=== PATIENT | female | born 1990 | race Caucasian/White ===

== ENCOUNTER 2022-01-29 09:43 | Outpatient (CLI) | payer BC, SELFPAY ==
--- NOTE | 2022-01-29 09:45 | CRLHL7_ITS ---
For Patients: As a result of the Cures Act, medical imaging exams and procedure reports are released immediately into your electronic medical record. You may view this report before your referring provider. If you have questions, please contact your health care provider. INDICATION: First trimester scan, establish dates. COMPARISON: None. TECHNIQUE: Real-time gonzalez-scale imaging of the pelvis was performed. FINDINGS: Sonographic imaging demonstrates a single living intrauterine gestation. The embryo demonstrates a regular cardiac rate measuring 178 beats per minute. The embryo`s crown-rump length measurement of 2.3 cm corresponds to a gestational age of 9 weeks 0 days with a sonographic due date of September 03, 2022. There is a normal-appearing yolk sac measuring 3.2 mm. There are no gross abnormalities noted within the embryo at this early state of development. The placenta has not yet developed. The gestational sac has a normal appearance and there is no evidence of a perigestational hemorrhage. The amount of fluid within the sac appears appropriate for gestational age. The cervix is closed. The myometrium appears normal. The ovaries are of normal size. The right ovary measures 3.7 x 2.4 x 2.1 cm and appears to contain a small corpus luteum cyst of . The left ovary measures 3.1 x 2.4 x 1.9 cm. There are no suspicious fluid collections noted in the cul-de-sac. IMPRESSION: Normal first trimester OB ultrasound exam. Gestational age calculated at 9 weeks 0 days with a sonographic due date of September 03, 2022. Dictated by Bertrand Bell MD @ 01/29/2022 11:38:16 AM (Electronically Signed)
[2022-01-29 14:04] LABS: Hepatitis B Surface Antigen* Negative (Negative)
[2022-01-29 14:12] LABS: HIV 1/2/P24 Combo Screen* Negative (Negative)
[2022-01-29 14:21] LABS: Hepatitis C Virus Antibody* Negative (Negative)
[2022-01-30 17:16] LABS: Rapid Plasma Reagin (RPR) Non Reactive (Non Reactive)
[2022-01-30 20:41] LABS: Rubella Antibody IgG 34.2 IU/mL
== END 2022-01-29 09:44 | disposition home or self-care (01) ==
LOC: US 09:44
PROVIDERS: Visit Provider Advanced Practice Midwife
DX: Z34.81 Encounter for supervision of other normal pregnancy, first trimester (principal); Z3A.09 9 weeks gestation of pregnancy
CPT/HCPCS: 36415; 76817; 86592; 86703; 86762; 86787; 86803; 86850; 86900; 86901; 87086; 87340

== ENCOUNTER 2022-04-13 09:09 | Outpatient (CLI) | payer BC, SELFPAY ==
--- NOTE | 2022-04-13 09:15 | CRLHL7_ITS ---
For Patients: As a result of the Century Cures Act, medical imaging exams and procedure reports are released immediately into your electronic medical record. You may view this report before your referring provider. If you have questions, please contact your health care provider. INDICATION: Evaluate anatomy. COMPARISON: 01/29/2022 TECHNIQUE: Real time gonzalez scale imaging of the fetus was performed as well as color Doppler analysis of the umbilical vessels. FINDINGS: Sonographic imaging demonstrates a single living intrauterine gestation. Fetus demonstrates a regular cardiac rate of 161 beats per minute. Fetus has a variable position. The placenta lies posteriorly without evidence of placenta previa. The edge of the placenta is located 5.1 cm from the internal cervical os. Amniotic fluid volume appears normal. Single deepest vertical pocket: 4.9 cm. The cervix is closed and measures 3.7 cm in length. The composite ultrasound gestational age is calculated at 19 weeks 4 days with an estimated sonographic due date of 09/03/2022. The estimated weight is 313 grams which lies at the 34th %. The following biometric measurements were obtained: Biparietal diameter: 4.5 cm/19 weeks 3 days 28th% Head circumference: 17.2 cm/19 weeks 5 days 30th% Abdominal circumference: 15.3 cm/20 weeks 3 days 61st% Femur length: 2.9 cm/19 weeks 0 days 13th% The HC/AC ratio measures: 1.12 range (1.08-1.26) On anatomic survey, there is a normal appearance of the cerebral ventricles, cavum septi pellucidi, cisterna magna and cerebellum. The nose, lips, and facial profile appear normal. The cervical, thoracic and lumbar spine are well visualized and appear normal. There is a normal four-chamber heart view and the left and right ventricular outflow tracts appear normal. The diaphragm and stomach appear normal. The kidneys and bladder also appear normal. There is a normal three-vessel cord and there is an eccentric cord insertion site. The four extremities appear normal. IMPRESSION: Concordance of clinical and sonographic dating. No intrinsic abnormalities on anatomic survey. Appearance of circumvallate placenta noted. No previa. Dictated by Qasim Chandra MD @ 04/13/2022 11:14:18 AM (Electronically Signed)
== END 2022-04-13 09:10 | disposition home or self-care (01) ==
PROVIDERS: Visit Provider Obstetrics & Gynecology
DX: Z34.92 Encounter for supervision of normal pregnancy, unspecified, second trimester (principal); Z3A.20 20 weeks gestation of pregnancy
CPT/HCPCS: 76805

== ENCOUNTER 2022-06-08 10:57 | Outpatient (CLI) | payer BC, SELFPAY | END 2022-06-08 10:58 | disposition home or self-care (01) | LOC: NFLDREF 06-09 02:57 | PROVIDERS: Visit Provider Obstetrics & Gynecology | DX: Z3A.28 28 weeks gestation of pregnancy (principal); O43.113 Circumvallate placenta, third trimester | CPT/HCPCS: 86592; 86850 ==

== ENCOUNTER 2022-07-09 09:34 | Outpatient (CLI) | payer BC, SELFPAY ==
--- NOTE | 2022-07-09 09:45 | CRLHL7_ITS ---
For Patients: As a result of the Century Cures Act, medical imaging exams and procedure reports are released immediately into your electronic medical record. You may view this report before your referring provider. If you have questions, please contact your health care provider. INDICATION: female. Assess interval growth. Circumvallate placenta. TECHNIQUE: Transabdominal obstetrical ultrasound. COMPARISON: April 13, 2022. FINDINGS: Single living intrauterine in breech presentation. Posterior placenta. heart rate 142 beats per minute. Normal amniotic fluid. Single deepest pocket measurement 4.3 cm. Biparietal diameter 7.9 cm, 31 weeks 5 days, 23rd percentile. Head circumference 29.8 cm, 33 weeks 0 days, 27th percentile. Abdominal circumference 27.2 cm, 31 weeks 2 days, 18th percentile. Femur length 6 cm, 31 weeks 1 day, 11th percentile. Composite calculated ultrasound age 31 weeks 6 days with a sonographic due date of September 04, 2022. Estimated weight 1770 g which lies at the 15th percentile. The head to abdominal circumference ratio is normal at 1.1 (0.96-1.14). IMPRESSION: 1. Single living intrauterine in laura breech presentation. 2. Composite calculated ultrasound age 39 weeks 6 days with a sonographic due date of September 04, 2022. Appropriate growth and maturation in the interval. Dictated by Bertrand Bell MD @ 07/09/2022 11:12:58 AM (Electronically Signed)
== END 2022-07-09 09:35 | disposition home or self-care (01) ==
LOC: US 09:34
PROVIDERS: PCP Obstetrics & Gynecology; Visit Provider Obstetrics & Gynecology
DX: O43.113 Circumvallate placenta, third trimester (principal); Z3A.31 31 weeks gestation of pregnancy
CPT/HCPCS: 76816

== ENCOUNTER 2022-08-23 01:23 | Inpatient (IN) | payer BC, SELFPAY ==
[2022-08-23] VITALS (40 sets, daily range): BP systolic 95–130; BP diastolic 51–74; PULSE 53–155; RESP 16–18; TEMP 36.6–36.8; O2SAT 96–100; BMI 21.5
[2022-08-23] MEDS: LACTATED RINGERS 1000 ML 1,000 ML 999 ML IV ×2 (02:12→04:02)
[2022-08-23] MEDS: LIDOCAINE 2% (PF) 5 ML VIAL EPIDURAL ×2 (02:57→03:31)
[2022-08-23] MEDS: ROPIVACAINE 0.2% 100 ml 100 ML 12 MG EPIDURAL (03:00)
[2022-08-23] MEDS: fentaNYL 100 MCG/2 ML inj EPIDURAL (03:00)
--- NOTE | 2022-08-23 03:44 | W.PM.LDBA ---
Subjective History of Present Illness Date Seen: 08/23/22 Narrative: Patient is being admitted to Labor and Delivery for delivery after SROM. She is a 32 year old at 38 6/7 weeks gestation. Her full history and physical was dictated by Dr. VELAZCO on 08/12/22. Please see this for details. OB Problem List: . KIRILL 08/31/21 : Armen Barone. Boy at home: Tato. Baby: Girl! 1. Penicillin allergy (rash as a child - has not had penicillin since) 2. Low BMI (17) 3. Blood type B (-). Rhogam 06/08/2022 4. Circumvallate placenta: EFW at 20wks = 34% USN for EFW @ 32wks 07/09/22: BR. SDP: 4.3cm.? EFW:? 1770 g, 3 lb 14 oz, 15%.? BPD 23%, HC 27%, AC 18% FL 11% EFW 36 wks 08/03/2022: EFW of 2457 g, 5 lb 7 oz, 16%.? BPD 30%, HC 28%, AC 14%, FL 10%.? Vertex.? SDP 5.0 cm5. Last Pap smear in 2019: Normal.? Due for a Pap at her 6 week visit.? COVID: vaccinated, boosted x1 Flu: interested TDAP: 06/26/22 OB - Problem Based A/P Additional Plan (1) Circumvallate placenta: Status: Acute Plan 1. Expectant management of labor, if it stalls will recommend to start oxytocin. 2. GBS negative no need for antibiotic prophylaxis. 3. Epidural in place. 4. Continuous monitoring due to circumvallate placenta. OB Exam Physical Exam Vital signs: Pulse BP Pulse Ox 58 L 106/54 L 97 08/23/22 03:39 08/23/22 03:39 08/23/22 03:02 Detailed Labor and Delivery Exam Patient Gravid: Yes Dilation (cm): 4 Effacement (%): 90 Cervix position: mid Consistency: soft Contraction Frequency: Regular Tachysystole: No Contraction intensity: Moderate Fetus (Single) Station: 0 Amniotic Membrane Status: SROM Amniotic Membrane Fluid Description: Clear Heart Rate Baseline: 130 Monitor Accelerations: Present Monitor Decelerations: None Novelty Candy Maker Variability: Moderate (6-25)
[2022-08-23] MEDS: PHENYLEPHRINE 100 MCG/ML SYRINGE IVP (04:14)
--- NOTE | 2022-08-23 06:16 | W.PM.OBVAGDE ---
OB Procedure Vag Delivery Mother Details Mother Details: The patient is a 32 year-old, 2, Para 1, admitted on 08/23/22 at Days gestation. : 2 Para: 1 Weeks Gestation: 38.6 Admission Date: 08/23/22 Additional Details Amniotic Membrane Status: SROM Amniotic Membrane Rupture Date: 08/22/22 Amniotic Membrane Rupture Time: 23:45 Amniotic Membrane Fluid Description: Clear Analgesia/Anesthesia Type: Epidural Waterbirth: No Pitcoin: No Intrapartal Events: None Labor Onset: 03:00 Complete: 05:50 Pushin:52 Heart: heart tones during second stage were category 1. Delivery Details Delivery Date: 08/23/22 Delivery Time: 06:01 Route of delivery: Gender: Female Infant Viability: Alive; Heart Rate Present Position at Delivery: OA Delivery Details: Delivered over intact perineum via spontaneous vaginal delivery. was placed on maternal abdomen.? Cord was clamped and cut after a 30-60 second delay. Nose and mouth were bulb suctioned.? Infant weight pending. 1 Minute Interval Total Score: 8 5 Minute Interval Total Score: 9 Additional Details Shoulder Dystocia: No Placenta Delivery Time: 06:11 Placental Delivery Description: Spontaneous Procedure Done: Global Blood Loss: 50 Laceration: None Blood Loss Measurement Type: QBL Bakri Used: No Sponge/Need Count Correct: Yes Cord Vessel Description: 3 Vessels and Nuchal Cord Event Summary Status: Mother and were stable after delivery. Disposition: floor
[2022-08-23] MEDS: OXYTOCIN 30 unit/500 ML in NS 30 UNIT/500 ML BAG 300 UNIT IVPB (06:28)
--- NOTE | 2022-08-23 07:14 | PM.ANBPRC ---
[facility] Medical History (Updated 06/08/22 @ 11:16 by Marzena Hernandez MD) Circumvallate placenta ?O43.119 - Circumvallate placenta, unspecified trimester (ICD-10) care ?Z34.90 - Encounter for supervision of normal , unspecified, unspecified trimester (ICD-10) Preg complication NEC-del w/ complication ?O26.899 - Other specified related conditions, unspecified trimester (ICD-10) Low BMI Surgical History (Updated 05/26/22 @ 12:08 by Agnieszka Cornelius) History of hand surgery (03/22/09) ?Z98.890 - Other specified postprocedural states (ICD-10) H/O adenoidectomy ?Z90.89 - Acquired absence of other organs (ICD-10) Hx of tonsillectomy ?Z90.89 - Acquired absence of other organs (ICD-10) [place] teeth extracted ?K08.409 - Partial loss of teeth, unspecified cause, unspecified class (ICD-10) Family History (Updated 01/29/22 @ 11:21 by Flavia Hadley CNM) Father Prostate cancer Scleroderma Social History What is your current living situation: I presently have a place to live Problems where you live: no known problems In the past 12 months, utilities in danger of being shut off: no In the past 12 mos, have been you worried that your food would run out before you had money to buy more?: never true In the past 12 mos, the food you bought just didn't last and you didn't have money to buy more?: never true Smoking Status: Never smoker How often does anyone, including family, friends and others, physically hurt you: How often does anyone, including family, friends and others, insult or talk down to you: How often does anyone, including family, friends and others, threaten you with harm: How often does anyone, including family, friends and others, scream or curse at you: Little interest or pleasure in doing things: not at all Feeling down, depressed, or hopeless: not at all Meds Home Medications and Allergies Home Medications Medication Instructions Recorded Confirmed Type prenat.fabiáns,adrian,ysj-txeu-bcbgl 1 tab PO QDAY 01/29/22 08/23/22 History Allergies Allergy/AdvReac Type Severity Reaction Status Date / Time Penicillins Allergy Mild Unknown Verified 08/19/22 10:16 Results Vital Signs Vital Signs: Last Vital Signs Temp 97.9 F 08/23/22 06:15 Pulse 64 08/23/22 07:04 Resp 18 08/23/22 02:00 BP 121/56 L 08/23/22 07:04 Pulse Ox 97 08/23/22 03:02 Weight: 70.125 kg Height: 180.34 cm Anesthesia Procedures Epidural Insertion Patient Location: OB Start Time: 02:30 Stop Time: 03:30 Start Date: 08/23/22 Stop Date: 08/23/22 Reason for Block: primary anesthetic Patient Position: sitting Performed By: Alhaji Collins Preanesthetic Checklist: IV checked, risks and benefits discussed, surgical consent, monitors and equipment checked, pre-op evaluation, timeout performed and anesthesia consent Prep: chlorhexidine gluconate Monitoring: blood pressure monitoring, computational physicist, continuous pulse oximetry and heart rate Approach: midline Vertebral Space: lumbar (1-5) Needle Type: Tuohy needle Injection Technique: continuous catheter Needle gauge: 17 Needle Length (cm): 10 cm Needle Insertion Depth (cm): 6 Catheter Gauge: 19 Catheter Type: multi-orifice Catheter at skin depth (cm): 12 Test Dose Result: negative and lidocaine 1.5% with epinephrine 1 to 200,000 Events: other
[2022-08-23] MEDS: SODIUM CHLORIDE 0.9 % (FLUSH) 10 ML SYRINGE IVF (07:43)
[2022-08-23] MEDS: IBUPROFEN 600 MG TABLET PO ×2 (09:09→18:09)
[2022-08-23] MEDS: DOCUSATE SODIUM 100 MG CAPSULE PO (09:09)
[2022-08-23] MEDS: SIMETHICONE 80 MG TAB.CHEW PO (18:19)
[2022-08-24 00:51] VITALS: BP 114/69; PULSE 55; RESP 16; TEMP 36.6; O2SAT 96
[2022-08-24 05:55] VITALS: BP 109/64; PULSE 76; RESP 16; TEMP 36.4; O2SAT 97
[2022-08-24 06:42] LABS: Hemoglobin* 11.7 gm/dL (12.0-16.0)
--- NOTE | 2022-08-24 08:05 | PM.OBPNVD1 ---
OB - PN:Subj Subjective Date Seen: 08/24/22 Interval history: Nanda is a 32 y.o. at 38 6/7 who was admitted to L & D for spontaneous onset of labor. ?She had an uncomplicated NVD.? Narrative: Nanda is a 32 y.o. who was admitted to L & D for spontaneous onset of labor. ?She had an uncomplicated NVD.?The patient feels well. ?The pain is well controlled with current medications. ?She has no new complaints. ?She is breast feeding and reports things are going well but baby is very spitty.? the patient has done well.? Vitals have been stable.? She has remained afebrile.? Has a good appetite, is tolerating a general diet. ?She is voiding without difficulty.? She is passing gas and has had a small bowel movement.? She is ambulating and denies any dizziness.? Has Small amount of rubra lochia. OB - PN: Obj Exam Physical Exam: Vital signs: Temp Pulse Resp BP Pulse Ox O2 Del Method 97.6 F 76 16 109/64 97 Room Air 08/24/22 05:55 08/24/22 05:55 08/24/22 05:55 08/24/22 05:55 08/24/22 05:55 08/24/22 05:55 Narrative: GENERAL APPEARANCE:? normal affect, alert, no distress MOOD:? appropriate CHEST:? clear to auscultation HEART:? regular rate and rhythm ABDOMEN:? soft, non-tender the uterine fundus is 1 below Umbilicus, Midline and is appropriate for the stage of recovery. PERINEUM:? mild edema of the perineum. EXTREMITIES:? normal and no edema OB - PN: Obj Data Labs Labs: Laboratory Results - last 24 hr 08/24/22 06:18 Hgb 11.7 L OB - PN: A/P Vaginal Delivery Assessment and Plan (1) care and examination immediately after delivery: Status: Acute (2) Lactating mother: Status: Acute Plan day: 1 Plan: routine care Comments: Routine care Lactating mother. May see if desired. Anticipate discharge tomorrow 08/25.
[2022-08-24 14:45] VITALS: BP 96/55; PULSE 65; RESP 16; TEMP 36.7; O2SAT 97
[2022-08-24] MEDS: DOCUSATE SODIUM 100 MG CAPSULE PO (14:47)
[2022-08-24] MEDS: IBUPROFEN 600 MG TABLET PO (19:32)
[2022-08-25 02:05] VITALS: BP 124/93; PULSE 71; RESP 16; TEMP 36.6; O2SAT 98
[2022-08-25 07:25] VITALS: BP 110/60; PULSE 65; RESP 16; TEMP 36.8; O2SAT 98
[2022-08-25] MEDS: DOCUSATE SODIUM 100 MG CAPSULE PO ×2 (07:56→07:59)
--- NOTE | 2022-08-25 08:10 | PM.OBDSVD1 ---
DS: Providers Provider Time Seen by Provider: 08:11 Date Seen: 08/25/22 Date of admission: 08/23/22 01:23 Primary care physician: Marzena Hernandez MD Admitting Clinician: Gita Reardon MD Attending Physician on discharge: Gita Reardon MD Date of Discharge: 08/25/22 DS: Diagnosis Discharge Diagnosis (1) Normal vaginal delivery: Status: Acute (2) Lactating mother: Status: Acute (3) care and examination immediately after delivery: Status: Acute Exam Narrative: Exam Narrative: VSS, afebrile GENERAL APPEARANCE: ?normal affect, alert, no distress MOOD: ?appropriate HEENT: normocephalic, neck supple, full ROM CHEST: ?Symmetrical chest wall movement. ?Normal respiratory effort. ?Clear to auscultation HEART: ?regular rate and rhythm ABDOMEN: ?soft, non-tender. Uterine fundus is firm, 3 below Umbilicus, Midline and is appropriate for the stage of recovery. ?Bowel sounds present. PERINEUM: ?mild edema of the perineum, there is a no laceration. EXTREMITIES: ?normal and no edema Const: Vital Signs, click to edit/add: Vital Signs - 24 hr 08/24/22 14:45 08/25/22 02:05 08/25/22 07:25 Temperature 98.1 F 97.9 F 98.3 F Pulse Rate [Pulse Oximeter] 65 71 65 Respiratory Rate 16 16 16 Blood Pressure [Le ft Arm] 96/55 L 124/93 H 110/60 Pulse Oximetry 97 98 98 Oxygen Delivery Me thod Room Air Room Air Room Air Documenting provider has reviewed patient's vital signs: yes OB - DS: Summary Hospital Course Hospital Course: Nanda is a 32 y.o. G 2 P 2 who was admitted to L & D for labor. ?She had an uncomplicated NVD The patient feels well. ?The pain is well controlled with current medications. ?She has no new complaints. ?She is breast feeding and reports things are going well.? Baby has just been spitting up a lot. the patient has done well.? Vitals have been stable.? She has remained afebrile.? Has a good appetite, is tolerating a general diet. ?She is voiding without difficulty.? She is passing gas and has not had a bowel movement.? She is ambulating and denies any dizziness.? Has Small amount of rubra lochia. She is planning partnery vasectomy for prevention. Problems: none plan: Discharge home with baby. Follow up in 2 weeks and 6 weeks. , may follow up with if needed Peripartum Data delivery method: Vaginal Laceration description: None [place] Infant Gender: Female Status at Discharge Functional status at discharge: independent ambulation Overall status at discharge: patient is progressing back to baseline Time Spent with Patient Time attestation: Total time spent providing and/or coordinating discharge services: Time spent: Less than 30 minutes Discharge Plan Discharge Disposition: Home, Self-Care Date of Admission: 08/23/22 01:23 Attending Provider on Discharge: Juana Peoples Primary Care Provider: Marzena Hernandez Condition: Stable Anticipated Discharge Date/Time: 08/25/22 13:00 Discharge Medications: New docusate sodium 100 mg Capsule 100 mg PO BID PRNQty: 100 0RF Rx Instructions: Take 1 cap 1-2 times a day as needed for constipation ibuprofen 600 mg Tablet 600 mg PO Q6H PRNQty: 60 0RF Continued prenat.vits,adrian,sqg-yaat-miwcl Tablet 1 tab PO QDAY Discharge Orders: Discharge Order (Routine); Ordered 08/25/22 Ordered By: Juana Peoples Patient Education: OB Over the Counter Medication Information, OB Vaginal/Breast Feeding Additional Instructions: Follow up in 2 weeks and 6 weeks Activity Level: Activity as Tolerated Discharge Diet: Regular Follow Up Appointments: Marzena Hernandez MD [Primary Care Provider] - Forms: [facility] Info Instructions
== END 2022-08-25 15:10 | disposition home or self-care (01) | DRG 560 ==
LOC: OB OUT 08-24 10:30
PROVIDERS: Admitting Provider Obstetrics & Gynecology; PCP Obstetrics & Gynecology; Visit Provider Obstetrics & Gynecology
DX: O43.113 Circumvallate placenta, third trimester (principal); Z3A.38 38 weeks gestation of pregnancy; Z37.0 Single live birth
CPT/HCPCS: 01967; 36415; 85018; 85461; 88307; 88341; 88342; 99213; A9270; J2370; J2791; J2795; J3010; J7120

== ENCOUNTER 2022-08-30 19:54 | Emergency (ER) | payer BC, SELFPAY ==
[2022-08-30 20:08] VITALS: BP 121/83; PULSE 77; RESP 14; TEMP 36.7; O2SAT 98
[2022-08-30 20:33] LABS: Appearance Urine Clear (Clear); Bilirubin Urine Negative (Negative); Blood Urine 2+ (Negative); Color Urine Yellow (Yellow); Glucose Urine Negative (Negative); Ketones Urine Negative (Negative); Leukocyte Esterase Urine Negative (Negative); Nitrite Urine Negative (Negative); Protein Urine Negative (Negative); Specific Gravity Urine >= 1.030 (1.000-1.030); Urobilinogen Urine 0.2 (0.2-1.0)
--- NOTE | 2022-08-30 20:45 | ED.GENADULT ---
HPI - General Adult General Time Seen by Provider: 20:45 Date Seen: 08/30/22 Chief complaint: Abdominal Pain Stated complaint: 1week post , stomach pain Time Seen by Provider: 08/30/22 20:45 Source: patient, RN notes reviewed and old records reviewed Mode of arrival: ambulatory Limitations: no limitations History of Present Illness HPI narrative: Iraida is a very pleasant who is 1 week from a normal vaginal delivery who comes to the emergency room with abdominal pain. She describes lower abdominal pain starting yesterday morning. It has continued is worsening and is associated with discomfort with urinating. She notes no nausea vomiting or fever. She has had loose stools but had been on stool softeners. She has not noticed any blood in her stool. She notes continued vaginal drainage that has slowed down. When she initially went home on WednesdayAugust 25 she did have a golf ball size clot but no clots since that time. Her water broke prior to delivery knots what brought her to the hospital. She did not require any antibiotics during her labor. She did have a straight cath during her labor. She did have an epidural. Related Data Home Medications Medication Instructions Recorded Confirmed prenat.vits,adrian,[id number] 1 tab PO QDAY 01/29/22 08/30/22 Previous Rx's Medication Instructions Recorded docusate sodium 100 mg capsule 100 mg PO BID PRN #100 caps 08/25/22 ibuprofen 600 mg tablet 600 mg PO Q6H PRN #60 tabs 08/25/22 clindamycin HCl 300 mg capsule 600 mg (2 x 300 mg) PO Q6H 7 days 08/31/22 #56 caps Allergies Allergy/AdvReac Type Severity Reaction Status Date / Time Penicillins Allergy Mild Unknown Verified 08/30/22 20:12 Review of Systems Status of ROS: Reports: 10 or more systems reviewed and unremarkable except as noted in History and below Const: Denies: fever, chills or fatigue ENMT: Denies: throat pain, neck pain or difficulty swallowing Cardio: Denies: chest pain or shortness of breath with exertion Resp: Denies: shortness of breath or cough GI: Reports: abdominal pain; Denies: nausea, vomiting, constipation or difficulty swallowing : Reports: painful urination (Described as a pressure) and vaginal bleeding (Slowing down) Musculo: Denies: neck pain Neuro: Denies: headache Endo: Denies: fatigue PFSH [facility] Medical History Circumvallate placenta ?O43.119 - Circumvallate placenta, unspecified trimester (ICD-10) care ?Z34.90 - Encounter for supervision of normal , unspecified, unspecified trimester (ICD-10) Preg complication NEC-del w/ complication ?O26.899 - Other specified related conditions, unspecified trimester (ICD-10) Low BMI Surgical History History of hand surgery (03/22/09) ?Z98.890 - Other specified postprocedural states (ICD-10) H/O adenoidectomy ?Z90.89 - Acquired absence of other organs (ICD-10) Hx of tonsillectomy ?Z90.89 - Acquired absence of other organs (ICD-10) [place] teeth extracted ?K08.409 - Partial loss of teeth, unspecified cause, unspecified class (ICD-10) Family History Father Prostate cancer Scleroderma Social History What is your current living situation: I presently have a place to live Problems where you live: no known problems In the past 12 months, utilities in danger of being shut off: no In the past 12 mos, have been you worried that your food would run out before you had money to buy more?: never true In the past 12 mos, the food you bought just didn't last and you didn't have money to buy more?: never true Smoking Status: Never smoker Do you use any of these nicotine containing products: None Second hand tobacco smoke exposure: No How often do you have a drink containing alcohol: never AUDIT-C Alcohol total score: 0 Non-prescribed substance use: denies use How often does anyone, including family, friends and others, physically hurt you: How often does anyone, including family, friends and others, insult or talk down to you: How often does anyone, including family, friends and others, threaten you with harm: How often does anyone, including family, friends and others, scream or curse at you: Little interest or pleasure in doing things: not at all Feeling down, depressed, or hopeless: not at all Exam Narrative: Exam Narrative: Patient is alert and oriented and not in any acute distress. Heart with regular rate and rhythm and lungs are clear. Abdomen shows mild tenderness in the hypogastric area pelvis right lower quadrant. Hello palpation over suprapubic area increases discomfort in the left lower abdomen. No rebound tenderness. Digital bimanual exam shows tenderness in the abdomen but no significant uterine tenderness is noted. Patient is rather diffusely tender throughout. No cervical motion tenderness. No masses are palpated. There is no evidence of foul smelling discharge. No lower extremity edema. Const: Vital Signs, click to edit/add: Vital Signs - 24 hr 08/30/22 20:08 08/30/22 23:35 08/31/22 00:42 Temperature 98.1 F 98.1 F 98.1 F Pulse Rate [Right Pulse Oximeter] 77 69 Respiratory Rate 14 14 Blood Pressure [Ri ght Upper Arm] 121/83 117/74 Pulse Oximetry 98 98 Oxygen Delivery Me thod Room Air Room Air Documenting provider has reviewed patient's vital signs: yes Course Course Hospital Course: Differential diagnosis includes but is not limited to appendicitis, endometritis, urinary tract infection, pyelonephritis, ovarian torsion. At this time will place IV and try Toradol for pain control. Will also do CBC, basic panel and urinalysis. Reevaluation(s) Reevaluation #1: We initially talked about CT as patient does not feel much improved after Toradol. White count is normal and patient did have 10-25 rbc's in her urine. She feels that she did do attic it drop with cleansing of the area but she is . Hard to know if the RBCs represent contamination verses microscopic hematuria. Her mother does have kidney stones but she has never had that. She certainly does not have the demeanor of somebody with a kidney stone at this time. She is nontoxic in appearance. Upon further discussion she notes that she has more of a pressure when urinating and not so much of a pain. We elected to with shared decision making do an ultrasound of the abdomen and pelvis. I will then talk to OBGYN. Reevaluation #2: Further pelvic exam done and documented. No significant fundal tenderness. Tenderness appears to be rather diffuse in cross the entire lower abdomen. I did speak with Dr. Lenore TRISTAN retail wireless sales consultant. At this time suggestion to treat with clindamycin 600 mg p.o. Q 6 hours for 7 days if this is perhaps 80 laid endometritis. Vital Signs Vital signs: Initial Vital Signs Temperature 98.1 F 08/30/22 20:08 Temperature Source Oral 08/30/22 20:08 Pulse Rate 77 08/30/22 20:08 Pulse Rhythm Regular 08/30/22 20:08 Pulse Strength 3+ Normal 08/30/22 20:08 Respiratory Rate 14 08/30/22 20:08 Blood Pressure 121/83 08/30/22 20:08 Blood Pressure Mean 95 08/30/22 20:08 Blood Pressure Position Sitting 08/30/22 20:08 Pulse Oximetry 98 08/30/22 20:08 Oxygen Delivery Method Room Air 08/30/22 20:08 Vital Signs Temperature 98.1 F 08/30/22 20:08 Pulse Rate 77 08/30/22 20:08 Respiratory Rate 14 08/30/22 20:08 Blood Pressure 121/83 08/30/22 20:08 Pulse Oximetry 98 08/30/22 20:08 Oxygen Delivery Method Room Air 08/30/22 20:08 Temperature 98.1 F 08/31/22 00:42 Pulse Rate 69 08/31/22 00:42 Respiratory Rate 14 08/31/22 00:42 Blood Pressure 117/74 08/31/22 00:42 Pulse Oximetry 98 08/31/22 00:42 Oxygen Delivery Method Room Air 08/31/22 00:42 Medical Decision Making [facility] Narrative Medical decision making narrative: 1. Abdominal pain-at this time urinalysis shows rbc's but no wbc's. (I have asked lab to culture this) Patient really has no rebound tenderness in the right lower quadrant- in fact her pain is rather diffuse. I do not think this is an appendicitis or if it is it is very early and with a normal white count I hesitate to put patient through a CT. Ultrasound is also reassuring with no evidence of hydroureter hydronephrosis or other abdominal abnormalities. Pelvic ultrasound with normal ovaries. I discussed with patient that a clear-cut etiology for her abdominal pain is challenging at this time. I did speak with Dr. Lenore TRISTAN call. Initially we were thinking just follow-up with [facility] tomorrow as patient has an allergy to Augmentin. For suspected endometritis with penicillin allergy IV antibiotics would be indicated. However, Dr. Grover did call back and suggested clindamycin 600 mg p.o. Q 6 hours for 7 days for the possibility of delayed endometritis. First dose given in the emergency room tonight. Subsequent doses sent to her pharmacy [facility] in [place]. Patient will follow-up with [facility] tomorrow at the clinic. If however she develops fever, worsening pain worsening symptoms she will return to the emergency room for further evaluation. 2. Disposition-home at this time. Return as needed. Medical Records Medical records reviewed: Yes I reviewed the patient's medical records Lab Data Lab results reviewed: Yes I reviewed the patient's lab results Labs: Lab Results 08/30/22 08/30/22 Range/Units 20:26 21:00 WBC 7.83 (4.50-11.00) K/uL RBC 4.21 (4.00-5.20) m/uL Hgb 12.7 (12.0-16.0) gm/dL Hct 37.7 (33.0-51.0) % MCV 90 (80-100) fL MCH 30 (26-34) pg MCHC 34 (32-36) gm/dL RDW Coeff of [place]on[place] 12.2 (11.5-15.5) % Plt Count 191 (140-440) K/uL Neut % (Auto) 58.9 (42.0-72.0) % Lymph % (Auto) 33.0 (20-44) % [place] % (Auto) 6.9 (0.0-11.0) % Eos % (Auto) 0.8 (0.0-7.0) % Baso % (Auto) 0.3 (0.0-3.0) % Neut # (Auto) 4.62 (1.7-7.0) K/uL Lymph # (Auto) 2.58 (0.90-2.90) K/uL [place] # (Auto) 0.50 (0.00-0.90) K/UL Eos # (Auto) 0.06 (0.00-0.50) K/uL Baso # (Auto) 0.02 (0.00-0.30) K/uL Sodium 134 L (135-149) mmol/L Potassium 3.6 (3.6-5.1) mmol/L Chloride 103 (96-114) mmol/L Carbon Dioxide 25 (20-32) mmol/L BUN 9 (5-24) mg/dL Creatinine 0.8 (0.5-1.5) mg/dL Estimated GFR 102 ml/min Glucose 99 (60-115) mg/dL Calcium 9.1 (8.4-10.6) mg/dL Urine Color Yellow (Yellow) Urine Appearance Clear (Clear) Urine pH 6.0 (5.0-8.5) Ur Specific [place] >= 1.030 (1.000-1.030) Urine Protein Negative (Negative) Urine Glucose (UA) Negative (Negative) Urine Ketones Negative (Negative) Urine Blood 2+ A (Negative) Urine Nitrite Negative (Negative) Urine Bilirubin Negative (Negative) Urine Urobilinogen 0.2 (0.2-1.0) Ur Leukocyte Esterase Negative (Negative) Urine RBC 10-25 A (0-2) Urine WBC 0-2 (0-5) Ur Squamous Epith Cells Few (None-Few) Urine Bacteria None (None) Urine Mucus Few A (None) Imaging Data US - abdomen: Attestation: I have reviewed the pertinent imaging results. Radiologist's impression: Liver: Normal in size and echotexture. No masses. No intrahepatic biliary dilatation. Gallbladder: No stones or sludge. Normal wall thickness. No pericholecystic fluid. Sonographic Lopez sign is negative. Common bile duct: 3 mm. Pancreas: Normal. Spleen: Normal in size and appearance. Right kidney: 10.8 x 4.0 x 4.7 cm. Normal echotexture and cortex. Possible nonobstructing 3 mm stone in the midportion of the right kidney. Left kidney: 10.6 x 4.0 x 4.2 cm. Normal echotexture and cortex. No masses, stones, or hydronephrosis. Vasculature: Proximal abdominal aorta and IVC are normal in caliber. IMPRESSION: Possible nonobstructing 3 mm stone in the midportion of the right kidney. Remainder of the exam is unremarkable. Pelvic ultrasound: Attestation: I have reviewed the pertinent imaging results. Discharge Plan Discharge Clinical Impression: Abdominal pain Patient Disposition: Home, Self-Care Additional Instructions: Clindamycin 600 mg every 6 hours x7 days. Follow-up with softball coach clinic tomorrow. If you start developing fever, increasing pain please return to the emergency room for further evaluation. We will also send her urine for a culture. Prescriptions: New clindamycin HCl 300 mg capsule 600 mg PO Q6H 7 Days Qty: 56 0RF No Action prenat.vits,adrian,[id number] Tablet 1 tab PO QDAY docusate sodium 100 mg Capsule 100 mg PO BID PRNQty: 100 0RF Rx Instructions: Take 1 cap 1-2 times a day as needed for constipation ibuprofen 600 mg Tablet 600 mg PO Q6H PRNQty: 60 0RF Follow Up/Referrals: Marzena Hernnadez MD [Primary Care Provider] - Stand Alone Forms: [employer] Info Instructions
[2022-08-30 20:58] LABS: Mucus Urine Few; Squamous Epithelial Cell Urine Few (None-Few); WBC Urine 0-2 (0-5)
[2022-08-30] MEDS: KETOROLAC 15 MG/ML inj IVP (21:08)
[2022-08-30 21:13] LABS: Basophils Absolute Auto 0.02 K/uL (0.00-0.30); Basophils Percent Auto 0.3 % (0.0-3.0); Eosinophils Absolute Auto 0.06 K/uL (0.00-0.50); Eosinophils Percent Auto 0.8 % (0.0-7.0); Hematocrit 37.7 % (33.0-51.0); Hemoglobin* 12.7 gm/dL (12.0-16.0); Immature Granulocytes Abs Auto 0.01 K/uL (0.00-0.30); Immature Granulocytes Pct Auto 0.1 %; Lymphocytes Absolute Auto 2.58 K/uL (0.90-2.90); Mean Corpuscular HGB Conc 34 gm/dL (32-36); Mean Corpuscular Hemoglobin 30 pg (26-34); Mean Corpuscular Volume 90 fL (80-100); Monocytes Percent Auto 6.9 % (0.0-11.0); Neutrophils Absolute Auto 4.62 K/uL (1.7-7.0); Neutrophils Percent Auto 58.9 % (42.0-72.0); Platelet Count* 191 K/uL (140-440); RDW Coefficient of Variation % 12.2 % (11.5-15.5); Red Blood Count 4.21 m/uL (4.00-5.20); White Blood Count* 7.83 K/uL (4.50-11.00)
[2022-08-30 21:16] LABS: Slide Review Reflex No
[2022-08-30 21:26] LABS: Chloride* 103 mmol/L (96-114); Potassium* 3.6 mmol/L (3.6-5.1); Sodium* 134 mmol/L (135-149)
[2022-08-30 21:28] LABS: Creatinine* 0.8 mg/dL (0.5-1.5); Estimated Glomerular Filt Rate 102 ml/min
[2022-08-30 21:29] LABS: Blood Urea Nitrogen* 9 mg/dL (5-24); Carbon Dioxide* 25 mmol/L (20-32); Glucose* 99 mg/dL (60-115)
[2022-08-30 21:30] LABS: Calcium* 9.1 mg/dL (8.4-10.6)
--- NOTE | 2022-08-30 21:35 | CRLHL7_ITS ---
For Patients: As a result of the Century Cures Act, medical imaging exams and procedure reports are released immediately into your electronic medical record. You may view this report before your referring provider. If you have questions, please contact your health care provider. INDICATION: Abdominal pain, 1 week TECHNIQUE: Ultrasound abdomen complete. Sonographic images of the entire abdomen were obtained using gonzalez-scale and color Doppler. COMPARISON: Nine FINDINGS: Liver: Normal in size and echotexture. No masses. No intrahepatic biliary dilatation. Gallbladder: No stones or sludge. Normal wall thickness. No pericholecystic fluid. Sonographic Lopez sign is negative. Common bile duct: 3 mm. Pancreas: Normal. Spleen: Normal in size and appearance. Right kidney: 10.8 x 4.0 x 4.7 cm. Normal echotexture and cortex. Possible nonobstructing 3 mm stone in the midportion of the right kidney. Left kidney: 10.6 x 4.0 x 4.2 cm. Normal echotexture and cortex. No masses, stones, or hydronephrosis. Vasculature: Proximal abdominal aorta and IVC are normal in caliber. IMPRESSION: Possible nonobstructing 3 mm stone in the midportion of the right kidney. Remainder of the exam is unremarkable. Dictated by Brenda Duron MD @ 08/31/2022 12:07:43 AM (Electronically Signed)
--- NOTE | 2022-08-30 21:35 | CRLHL7_ITS ---
For Patients: As a result of the Century Cures Act, medical imaging exams and procedure reports are released immediately into your electronic medical record. You may view this report before your referring provider. If you have questions, please contact your health care provider. INDICATION: Abdominal and pelvic pain, 1 week TECHNIQUE: Ultrasound pelvis transabdominal. Real-time sonographic images with spectral and color Doppler imaging of the ovaries were obtained. COMPARISON: None FINDINGS: Uterus: Heterogeneous echotexture of the myometrium. Increased vascularity in the periphery of the uterus. In the midportion of the uterus, there is the predominantly hypoechoic area measuring 4.8 x 2.7 x 3.8 cm. Endometrium: Not clearly visualized. Right ovary: 2.7 x 0.8 x 1.6 cm. No ovarian or adnexal masses. The right ovary demonstrates blood flow. Left ovary: 1.6 x 0.9 x 1.0 cm. No ovarian or adnexal masses. The left ovary demonstrates blood flow. Cul-de-sac: No significant free fluid. IMPRESSION: Heterogeneous myometrium with prominent vascularity in the periphery the uterus. These findings may be related to recent state. The endometrium is not clearly seen. Hypoechoic area in the mid uterus measuring greater than 4 cm. This could represent hematoma within the endometrium or a uterine fibroid. Consider gynecology consultation. Dictated by Brenda Duron MD @ 08/31/2022 12:40:39 AM (Electronically Signed)
[2022-08-30 23:35] VITALS: TEMP 36.7
[2022-08-31 00:42] VITALS: BP 117/74; PULSE 69; RESP 14; TEMP 36.7; O2SAT 98
[2022-08-31 01:33] VITALS: BP 117/74; PULSE 69; RESP 14; TEMP 36.7
== END 2022-08-31 01:33 | disposition home or self-care (01) ==
PROVIDERS: Family Medicine; Emergency Provider Family Medicine; PCP Obstetrics & Gynecology
DX: R10.9 Unspecified abdominal pain (principal)
CPT/HCPCS: 36415; 76700; 76856; 80048; 81001; 85025; 87086; 96374; 99284; J1885

== ENCOUNTER 2022-09-09 11:00 | Outpatient (CLI) | payer BC, SELFPAY ==
--- NOTE | 2022-09-09 17:00 | W.PM.LAC.MC ---
Consult Note - Mom Date of Visit Date of visit: 09/09/22 work and family life consultant: Nilam Aviles Visit Code: Visit Patient's Information Phone number: [phone] : 2 Para: 2 Allergies Penicillins Allergy (Mild, Verified 09/03/22 09:32) Unknown Mother's Medical History: Medical History (Updated 08/31/22 @ 01:02 by Nilam Mace MD) Type of Contraception: to get a vasectomy Delivery Information Delivery type: Vaginal Weeks Gestation: 39.0 Gestational Age: AGA Weight: 2.73 kg Discharge Weight: 2.515 kg Baby's Information Baby's Age at Visit: 2.5 weeks Baby's Provider or Clinic: [facility] Jaundice: No Reason for Consult Reason for Consult: difficulty latching, slow weight gain Past Experience Past Experience: Yes (nursed her older child about 7 months) Current Frequency of Day Feedings: trying to nurse baby every two hours Frequency of Night Feedings: every three hours Both Breasts: Yes (offers) Pumping Pumping: No (not after her engorgement resolved, uses Haakaa if needed) Quantity Pumped: averaged of 2 oz total Supplementing EMB Supplement: Yes (occasionally will supplement with about 1 oz) Formula Supplement: No Baby Elimination Number of Wet Diapers a Day: almost every feeding Number of BM a Day: almost every feeding Breast/Nipple Condition Breast Information: WNL Engorgement: No Maternal Nipple Condition - Left: Common Nipple Maternal Nipple Condition - Right: Common Nipple Sore Nipples: No Onsite Pre-Feed weight: 2.678 kg Post-Feed weight: 2.708 kg Milk Transferred (mL): 30 Pre-Nursing Left Nipple: Within Normal Limits Pre-Nursing Right Nipple: Within Normal Limits Post-Nursing Left Nipple: Within Normal Limits Post-Nursing Right Nipple: Within Normal Limits Assessments/Interventions Assessments/Interventions: Met with mom and this now 17 day old baby for appointment.? Mom is using a nipple shield and reports having a lot of difficulty getting baby to latch, stating it can take up to 15 minutes.? Baby is fine when sitting up but when mom goes to lay her on either side she starts to cry.? Once she finally latches she will nurse on both sides for 30 - 45 minutes total.? Mom really hasn't pumped since her engorgement resolved but will use her Haakaa when baby doesn't have a good session, getting about 2 oz total.? Baby is occasionally fed EBM from a bottle, usually taking 1 oz.? Mom reports a squeaking sound with both of the bottles she has (Germaine and Dr. Alvarado's).? Breasts WNL- symmetrical with rounded lower quadrants, intramammary distance is < 1.5 inches.? Nipples are everted and don't flatten or retract on compression; no damage noted.? Baby has gained 28 grams/day since her last visit on 09/07/22 and she's now 22 grams below BW at 17 DOL.? Mom denies any caput/cephalohematoma at delivery.? States baby prefers to turn her head to the right, but has equal ROM when moving her arms and legs.? Her chin isn't significantly recessed.? Her palate is a little high.? Her upper frenulum appears to be a little tight as her lips are difficult to flange and her gums latoya.? There was some canoeing when trying to lateralize and she was a little uncoordinated when sucking on a finger, inconsistently bringing her tongue over the gumline.? ? Mom attempted to latch baby in the cross cradle and football holds both with and without the shield with no success.? Baby was calm when she was upright, but as mom moved her to a more lateral position she started to cry.? There was no improvement when trying to latch baby in a more sitting position either.? She was finally able to latch in the reclined position on a patient bed and nursed for about 10 minutes on the left side.? Mom then tried the cross cradle on the right side and baby nursed a few minutes but then fell asleep.? She transferred between .5 - 1 oz (some EBM was used in trying to entice her to latch/calm her down so this was subtracted from the total but it's not exact as we weren't sure of the starting amount).? Baby did not seem to be in pain when laying on her side and mom denies any s/s of reflux.? It's almost like she didn't sense the nipple was in her mouth. Mom then bottle fed the remaining EBM 1.5 oz with the Germaine bottle, using chin support.? A sucking/squeaking sound was heard for most of the feeding even with the chin support.? Mom was shown 4 exercises to try from TOT's and encouraged to try those 3 - 5 times/day to see if it helps with baby's coordination and latch. Plan: 1. Offer the breast at every feeding, ok to stop after 10 - 15 minutes or sooner if mom and/or baby are frustrated.? Suggested trying the reclined position at least to get her started, ok to continue with the nipple shield. 2. Will supplement after poor feedings and if baby still seems hungry.? 3. Suggested mom pump after poor feedings and once in the morning after one of baby's hearing healthcare practitioner nursing sessions.? 4. Will try the TOT's exercises. 5. Handout on bodywork therapists given. 5. Will f/u with mom by phone to see how things are going on 09/16.? Reviewed baby should have another weight check before her 2 month visit but this can be done with a clinic nurse visit, in , or at [facility].? If mom feels there's no improvement will suggest another pre and post feeding weight and possibly a pediatric dental evaluation. Meds Home Medications and Allergies Home Medications Medication Instructions Recorded Confirmed Type prenat.vits,adrian,[id number] 1 tab PO QDAY 01/29/22 09/03/22 History Allergies Allergy/AdvReac Type Severity Reaction Status Date / Time Penicillins Allergy Mild Unknown Verified 09/03/22 09:32
== END 2022-09-09 11:01 | disposition home or self-care (01) ==
LOC: OB LAC 11:01
PROVIDERS: Visit Provider Obstetrics & Gynecology
DX: Z39.1 Encounter for care and examination of lactating mother (principal)
CPT/HCPCS: 99211

== ENCOUNTER 2022-10-06 14:58 | Outpatient (CLI) | payer BC, SELFPAY ==
--- NOTE | 2022-10-06 15:00 | CRLHL7_ITS ---
For Patients: As a result of the Century Cures Act, medical imaging exams and procedure reports are released immediately into your electronic medical record. You may view this report before your referring provider. If you have questions, please contact your health care provider. CLINICAL HISTORY: 2 months post- w/bleeding Comparison 08/30/2022 TECHNIQUE: 2D gonzalez scale and color Doppler images were acquired of the pelvis using a transvaginal approach. FINDINGS: The uterus measures 9.5 x 5.2 x 5.2 cm. No uterine fibroid. There is heterogeneous hypoechoic/hyperechoic tissue associated with the mid/fundal endometrium. Internal vascularity is present. This area measures 3.8 x 3.0 x 3.1 cm. No uterine fibroid. The left ovary measures 2.2 x 1.3 x 2.3 cm in size and the right ovary measures 2.2 x 1.0 x 1.6 cm. The ovaries demonstrate normal arterial and venous blood flow on color Doppler analysis. There are no suspicious fluid collections within the cul-de-sac. IMPRESSION: Heterogeneous echotexture with internal vascularity associated with the midline fundal endometrium measuring 3.8 x 3.0 x 3.1 cm suggestive of retained products of conception. Dictated by Qasim Chandra MD @ 10/07/2022 9:19:25 AM (Electronically Signed)
== END 2022-10-06 14:59 | disposition home or self-care (01) ==
LOC: US 14:59
PROVIDERS: Visit Provider Registered Nurse
DX: O72.2 Delayed and secondary postpartum hemorrhage (principal)
CPT/HCPCS: 76830

== ENCOUNTER 2022-10-14 10:29 | Day surgery (SDC) | payer BC, SELFPAY ==
[2022-10-14] MEDS: LACTATED RINGERS 1000 ML 1,000 ML 100 ML IV (10:50)
[2022-10-14 10:59] VITALS: BP 107/73; PULSE 70; RESP 16; TEMP 36.4; O2SAT 96
[2022-10-14 11:01] VITALS: BMI 19.1
[2022-10-14 11:10] LABS: Ur HCG Qualitative* Negative (Negative)
--- NOTE | 2022-10-14 11:25 | W.ANESCHARGE ---
Anesthesia Charges Start Date/Time Anesthesia Start Date: 10/14/22 Anesthesia Start Time: 13:12 Stop Date/Time Anesthesia Stop Date: 10/14/22 Anesthesia Stop Time: 14:10
--- NOTE | 2022-10-14 13:16 | W.PM.GYNPROC ---
Procedure Note Date of procedure: 10/14/22 Pre-op diagnosis: Prolonged bleeding, possible retained products of conception Post-op diagnosis: same Procedure: D&C under ultrasound guidance. Anesthesia: MAC and local (Paracervical block) Complications: None. Surgeon: Helen Rizo Estimated blood loss (mL): 10 Pathology: specimen obtained, sent to pathology Condition: stable Disposition: PACU Findings: Fragments of spongy tissue consistent with retained placental fragments. Procedure Description: After obtaining informed consent, the patient was taken to the operating room where she received monitored anesthesia care. She was prepared and draped in the normal, sterile fashion in the dorsal lithotomy position. Two g of IV Ancef and 1000 mg IV tranexamic acid were administered intravenously. An ultrasound was performed by the security installation sales technician at the bedside, which demonstrated a heterogeneous thickened endometrium with blood flow arising from the posterior aspect of the uterus, concerning for retained products of conception. The uterus was also observed to be retroverted. An open-sided bivalve speculum was placed into the vagina and the cervix easily visualized. The anterior lip of the cervix was grasped with a single-tooth tenaculum for traction. A paracervical block was administered using a total of 20 mL of a 50:50 mixture of 1% lidocaine and 0.25% Marcaine, plain. There was some tissue at the cervical os which was grasped and removed using a ring forceps. A sound was gently inserted through the cervical os into the uterus to the level of the fundus. Sound length was 12 cm. The cervix was gently dilated using Hegar dilators to a # 10 dilator. A 10 mm rigid, curved suction cannula was advanced through the cervical os into the uterine cavity under ultrasound guidance. Gentle suction was applied, and the uterine lining gently curetted. A small amount of products of conception and blood was removed. The suction cannula was removed. The uterine lining was gently explored using a sharp curette, and a gritty feel was felt throughout, but very little additional tissue was recovered. One final pass was made with the suction cannula, again using ultrasound guidance, and a large fragment of tissue was removed. At this time, ultrasound confirmed complete evacuation of the uterine contents. All instruments were then removed. The patient tolerated the procedure well. Sponge, lap, and needle counts were reported as correct x2. The patient was taken to the recovery room awake and in stable condition. PATHOLOGY SPECIMEN(S): Products of conception/retained placental fragments.
[2022-10-14] MEDS: CEFAZOLIN 2 GM INJ IVP (13:22)
[2022-10-14] MEDS: TRANEXAMIC ACID 100 MG/ML INJ 1000 MG IV (13:23)
[2022-10-14] MEDS: BUPIVACAINE 0.25% 30 ML 10 ML INJECTION (13:59)
[2022-10-14] MEDS: LIDOCAINE 1 % PF 30 ML 10 ML INJECTION (14:00)
[2022-10-14 14:05] VITALS: BP 98/61; PULSE 54; RESP 16; TEMP 36.2; O2SAT 98
--- NOTE | 2022-10-14 14:11 | W.ANESCHARGE ---
Anesthesia Charges Start Date/Time Anesthesia Start Date: 10/14/22 Anesthesia Start Time: 13:12 Stop Date/Time Anesthesia Stop Date: 10/14/22 Anesthesia Stop Time: 14:10
[2022-10-14 14:30] VITALS: BP 113/76; PULSE 57; RESP 16; O2SAT 98
[2022-10-14 14:45] VITALS: BP 109/64; PULSE 57; RESP 16; O2SAT 100
== END 2022-10-14 15:09 | disposition home or self-care (01) ==
PROVIDERS: PCP Registered Nurse; Visit Provider Obstetrics & Gynecology
PROC: (CPT 59160; principal; 2022-10-14 11:45)
DX: O72.2 Delayed and secondary postpartum hemorrhage (principal)
CPT/HCPCS: 59160; 00940; 01965; 76856; 76998; 81025; 88305; J0665; J0690; J1100; J1885; J2001; J2250; J2405; J2704; J3010; J7120

== ENCOUNTER 2022-12-09 06:20 | Day surgery (SDC) | payer BC, SELFPAY ==
[2022-12-09] VITALS (13 sets, daily range): BP systolic 107–121; BP diastolic 59–92; PULSE 58–97; RESP 12–20; TEMP 36.4–36.9; O2SAT 94–100; BMI 17.7
[2022-12-09 07:02] LABS: Ur HCG Qualitative* Negative (Negative)
--- NOTE | 2022-12-09 07:07 | W.PM.H&PU ---
History & Physical Update History & Physical Update H&P Reviewed and patient assessed: No changes noted H&P Updates: She is currently, therefore no narcotics will be prescribed.
[2022-12-09] MEDS: LACTATED RINGERS 1000 ML 1,000 ML 100 ML IV (07:15)
[2022-12-09] MEDS: SODIUM CHLORIDE 0.9 % (FLUSH) 10 ML SYRINGE IVF (07:15)
[2022-12-09] MEDS: MIDAZOLAM HCL 1 MG/ML inj IVP (07:23)
[2022-12-09] MEDS: fentaNYL 100 MCG/2 ML inj IVP (07:23)
--- NOTE | 2022-12-09 07:24 | SUR.PREOP ---
TIME?OUT:?0720 PT/RN/MDA?VERIFICATION?OF?SURGICAL?SITE,?PROCEDURE,?AND?CONSENT OBTAINED?PRIOR?TO?INVASIVE?PROCEDURE.all in agreement.
[2022-12-09] MEDS: CEFAZOLIN 2 GM in 0.9 % SODIUM CHLORIDE Mini-bag 100 ML IVPB (07:45)
[2022-12-09] MEDS: EPINEPHrine 1 MG in SODIUM CHLORIDE IRRIG SOLUTION 3,000 ML 3001 MG IRRIGATION ×5 (08:00→09:35)
--- NOTE | 2022-12-09 08:07 | SUR.OPER ---
PATIENT QUESTIONS ANSWERED SATISFACTORILY PREOPERATIVELY. PATIENT BROUGHT TO OR #2 PER CART FOLLOWING THE BLOCK. Patient positioned supine on OR #2 bed for the intubation.? Left arm elevated on an T bar in a padded strap. Final approval of positioning by surgeon. CONTINUOUS IRRIGATION OF THE LEFT SHOULDER WITH MIXTURE OF 3000 NACL AND 1mg OF EPINEPHRINE DURING PROCEDURE.
--- NOTE | 2022-12-09 08:20 | SUR.OPER ---
11 LBS. ON THE T-BAR POSITIONER PER H.B.
--- NOTE | 2022-12-09 08:54 | W.PM.NB ---
Nerve Block Nerve Block Time Seen by Provider: 07:24 Date Seen: 12/09/22 Type of block requested by surgeon for post-operative analgesia: supraclavicular Side: left Time out performed: Yes Verification of patient name: Yes Verification of date of : Yes Site marking: site marked Name of person performing procedure: Christiano Continuous monitoring Was continuous monitoring of O2 sat, B/P, fire hazard inspector, recorded every 15 minutes?: Yes Procedure Checklist: sterile prep, needles and gloves Ultrasound guided. Images saved: Yes Medications given in 5ml increments after negative aspiration: Ropivicaine %: 0.5 mL: 20 Needle gauge: 22 Decadron (mg): 10 Precedex (mcg): 25 Patient tolerated procedure well: Yes Block Charges Block Charge (with Pro Fee): Brachial Plexus Use of Ultrasound Machine for Block: Yes- US Guidance/pain block
--- NOTE | 2022-12-09 08:54 | W.ANESCHARGE ---
Anesthesia Charges Start Date/Time Anesthesia Start Date: 12/09/22 Anesthesia Start Time: 07:32 Stop Date/Time Anesthesia Stop Date: 12/09/22 Anesthesia Stop Time: 10:10
[2022-12-09] MEDS: EPINEPHrine 1 MG in SODIUM CHLORIDE IRRIG SOLUTION 3,000 ML 9003 MG IRRIGATION ×2 (08:59→09:12)
--- NOTE | 2022-12-09 09:46 | PM.ORPRC ---
Procedure Note Date of procedure: 12/09/22 Procedure: PREOPERATIVE DIAGNOSES: 1. 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 Left shoulder arthroscopic posterior capsulorrhaphy/posterior labral repair SURGEON: Yonis Flores MD DIAGNOSTIC TECHNOLOGIST: Damien Nur PA-C. Of note, a skilled historian research assistant was critical for this case to aide in patient positioning, suture manipulation, arm positioning, instrument positioning, and closure. ANESTHESIA: General plus preoperative supraclavicular block. EBL: 10 mL IMPLANTS: Arthrex 1.9 mm knotless fibertak (x3); Arthrex 2.9 mm BioComposite PushLock suture anchor (x1) COMPLICATIONS: None evident INDICATIONS: The patient is a pleasant, 32-year-old female who has experienced left shoulder pain with recurrent instability episodes. This has been progressively problematic despite extensive nonoperative management including formal physical therapy.. MRI was obtained and indeed confirmed posterior inferior labral tearing. Given the findings, surgery was recommended for stabilization / repair. FINDINGS: Exam under anesthesia revealed grade 2 posterior drawer. Grade 1 anterior drawer. Negative sulcus sign. The diagnostic arthroscopy revealed healthy chondral surfaces of the glenohumeral joint. Intact long head of biceps tendon. Intact supraspinatus and subscapularis seen from the articular side. Posterior labral tearing from approximately 2-4 o'clock. This tearing was mild/low-grade. But clearly pathologic. PROCEDURE: Following a thorough discussion of risks, benefits, and alternatives, consent was obtained and the operative shoulder was marked. The patient was brought to the operating room and placed supine on the operating table. Induction of anesthesia was completed after preoperative supraclavicular block was administered in preop holding. Appropriate time out was performed identifying proper patient, site, and procedure. 1 g IV Ancef was administered within 1 hour of incision preoperatively. The left upper extremity was prepped and draped in the appropriate sterile fashion using ChloraPrep. This was after the patient was positioned in the lateral decubitus position with all bony prominences well padded and axillary roll placed. The arm was placed with 10-11 lb of traction in approximately 35-45 degree angle. The shoulder was insufflated with 20mL of normal saline via an 18g spinal needle from a posterior approach. An 11 blade skin incision allowed a blunt trochar to be inserted and diagnostic arthroscopy to be performed with the findings as noted above. An anterior portal was established with an outside in technique. This allowed the probe to be inserted and confirm the diagnostic arthroscopic findings. We then created an posterior inferior percutaneous portal for improved trajectory of anchor placement. A liberator elevator was utilized for tissue preparation along with a rasp and shaver. At this juncture, a low posteroinferior anchor was placed at approximately the 5:30 position using a knotless FiberTak. The posteroinferior glenohumeral ligament was then captured with a suture Lasso, sutures passed, and the anchor mechanism engaged. This allowed excellent reapproximation of this IGHL posterior band. Next, 2 more FiberTak suture anchors and a single 3.0 mm push lock anchor were placed further up the clock face at approximately the 2:30, 3:30, 4:30 positions. When anchors had been completed, this fixation was reprobed and found to be stable. The humerus went from a loose/lax/ subluxated position to a reduced position within the glenohumeral joint and was now stable at the end of the case. The drive-through sign was eliminated as well. Instruments were removed, excess fluid was drained, and closure performed with 4 Monocryl and Steri-Strips. Dressings were applied. Sling was applied. The patient was awoken from anesthesia and transferred to the PACU in stable condition. A skilled historian research assistant was critical for this case to aid in patient positioning, limb positioning, skill to manipulate arthroscopic instruments and camera, suture management, patient safety, and closure. PLAN: 1. Elbow, forearm, wrist and digit range of motion as tolerated. 2. Encouraged ice. 3. Tylenol/ibuprofen for pain as needed. 4. Sling at all times except for ROM and showering. 5. Follow up with PA visit in 1-2 weeks for wound check.
--- NOTE | 2022-12-09 10:11 | W.ANESCHARGE ---
Anesthesia Charges Start Date/Time Anesthesia Start Date: 12/09/22 Anesthesia Start Time: 07:32 Stop Date/Time Anesthesia Stop Date: 12/09/22 Anesthesia Stop Time: 10:10
== END 2022-12-09 12:00 | disposition home or self-care (01) ==
PROVIDERS: Anesthesiology; PCP Physician Assistant Medical; Visit Provider Orthopaedic Surgery Sports Medicine
PROC: (CPT 29805; principal; 2022-12-09 07:30)
DX: M25.312 Other instability, left shoulder (principal); S43.432A Superior glenoid labrum lesion of left shoulder, initial encounter; G89.18 Other acute postprocedural pain
CPT/HCPCS: 29806; 01630; 64415; 76942; 81025; C1713; J0171; J0330; J0690; J1100; J2250; J2405; J2704; J2795; J3010; J7120; L3670